=== PATIENT | female | born 1960 | race Caucasian/White ===

== ENCOUNTER → 2020-07-17 | Outpatient (CLI) | payer BC, OTHER ==
[~2020-07-17] MED LIST: FLONASE 0.05% N16 GM; NABUMETONE750 MG PO; NORCO 5-325 TA1 EACH PO; NORCO 7.5-3251 EACH PO; PLAQUENIL200 MG PO; SINGULAIR10 MG PO; ZOFRAN ODT 4 MG4 MG PO; ZOFRAN ODT 4 MG4 MG SL; ZYRTEC10 MG PO
[2020-07-17 14:09] LABS: HEMOGLOBIN 14.2 gm/dl (12.3-15.3); RED BLOOD COUNT 4.08 M/UL (4.00-5.10); WHITE BLOOD COUNT 6.3 K/UL (4.5-11.0)
[2020-07-17 14:33] LABS: BUN/CREATININE RATIO 18 (0-10)
== END ==
LOC: LAB 13:22
PROVIDERS: Family Medicine
DX: E78.5 Hyperlipidemia, unspecified (principal); E55.9 Vitamin D deficiency, unspecified; R53.83 Other fatigue
CPT/HCPCS: 36415; 80053; 80061; 84439; 84443; 85027

== ENCOUNTER → 2020-08-12 | Outpatient (CLI) | payer BC, OTHER ==
[2020-08-13 08:12] LABS: CORTISOL 0.9 ug/dL (.)
[2020-08-19 22:06] LABS: METANEPHRINE, PL 48.6 pg/mL (0.0-88.0)
== END ==
LOC: LAB 07:29
PROVIDERS: Internal Medicine Endocrinology, Diabetes & Metabolism
DX: E27.8 Other specified disorders of adrenal gland (principal)
CPT/HCPCS: 36415; 82088; 82384; 82533; 83835; 84244; 91301

== ENCOUNTER → 2020-09-07 | Outpatient (CLI) | payer BC, OTHER ==
[2020-09-16 22:06] LABS: METANEPHRINE, PL 47.4 pg/mL (0.0-88.0); NORMETANEPHRINE, PL 282.8 pg/mL (0.0-136.8)
== END ==
LOC: LAB 14:41
PROVIDERS: Internal Medicine Endocrinology, Diabetes & Metabolism
DX: Z13.89 Encounter for screening for other disorder (principal); M25.569 Pain in unspecified knee; R10.9 Unspecified abdominal pain; R91.1 Solitary pulmonary nodule; R11.2 Nausea with vomiting, unspecified; Z79.899 Other long term (current) drug therapy
CPT/HCPCS: 36415; 83835

== ENCOUNTER → 2020-09-09 | Outpatient (CLI) | payer BC, OTHER ==
[2020-09-09 15:22] LABS: URINE CREATININE 60.8 mg/dL
[2020-09-15 18:13] LABS: DOPAMINE, URINE 180 ug/L (Undefined)
[2020-09-19 21:09] LABS: CREATININE, URINE 61 mg/dL (.); METANEPHRINE/CREATININE RATIO 152 ug/g (.); NORMETANEPHRINE/CREAT. RATIO 459 ug/g (.)
== END ==
LOC: LAB 14:08
PROVIDERS: Internal Medicine Endocrinology, Diabetes & Metabolism
DX: Z13.89 Encounter for screening for other disorder (principal); Z79.899 Other long term (current) drug therapy; M25.569 Pain in unspecified knee; R10.9 Unspecified abdominal pain; R91.1 Solitary pulmonary nodule; R11.2 Nausea with vomiting, unspecified
CPT/HCPCS: 82384; 82570; 83835

== ENCOUNTER → 2020-10-29 | Outpatient (CLI) | payer BC, OTHER | LOC: EXRD 13:13 | DX: M79.643 Pain in unspecified hand (principal); M19.042 Primary osteoarthritis, left hand; M19.041 Primary osteoarthritis, right hand | CPT/HCPCS: 73130 ==

== ENCOUNTER → 2020-11-13 | Outpatient (CLI) | payer BC, OTHER | LOC: LAB 07:58 | DX: E27.8 Other specified disorders of adrenal gland (principal) | CPT/HCPCS: 36415; 82024; 82533 ==

== ENCOUNTER → 2021-08-25 | Outpatient (CLI) | payer BC | LOC: EXRD 08:21 | DX: M54.42 Lumbago with sciatica, left side (principal) | CPT/HCPCS: 72100 ==